=== PATIENT | male | born 1955 | race Caucasian/White ===

== ENCOUNTER 2021-12-04 18:50 | Emergency (ER) | payer BC ==
[~2021-12-04] VITALS: Ht 182 cm; Wt 90.2 kg
--- NOTE | 2021-12-04 18:56 | ED General ---
General Stated Complaint: HIGH BP History of Present Illness Date Seen by Provider: Dec 04, 2021 Time Seen by Provider: 18:56 Initial Comments 66-year-old male with PMH of DM2/ past hypertension but is now on Lisinopril only for diabetic kidney protection, is herre with c/o elevated blood pressure. Pt checked his BP at home today and it was 209/102. Pt called his PCP office and was advised to come to the ER. Pt stated he had a headache yesterday but has been fine today. Denies chest pain, palpitations, dizziness, nausea, vomiting, fever. Allergies and Home Medications Allergies Coded Allergies: No Known Drug Allergies (Unverified , 12/04/21) Patient Home Medication List Home Medication List Reviewed: Yes Review of Systems Review of Systems Constitutional: no symptoms reported EENTM: no symptoms reported Respiratory: no symptoms reported Cardiovascular: no symptoms reported Gastrointestinal: no symptoms reported Genitourinary: no symptoms reported Musculoskeletal: no symptoms reported Skin: no symptoms reported Psychiatric/Neurological: No Symptoms Reported Hematologic/Lymphatic: No Symptoms Reported Immunological/Allergic: no symptoms reported Physical Exam Vital Signs Vital Signs - First Documented 12/04/21 12/04/21 19:16 19:30 Temp 36.7 Pulse 90 Resp 20 B/P (MAP) 227/102 (143) Pulse Ox 97 O2 Delivery Room Air O2 Flow Rate 96.00 Capillary Refill : Height, Weight, BMI Height: '" Weight: lbs. oz. kg; BMI Method: General Appearance: No Apparent Distress, WD/WN HEENT: PERRL/EOMI Neck: Full Range of Motion, Normal Inspection, Non Tender, Supple Respiratory: Lungs Clear, Normal Breath Sounds Cardiovascular: Regular Rate, Rhythm, No Edema, No Murmur Gastrointestinal: Non Tender, Soft Extremity: Normal Range of Motion Neurologic/Psychiatric: Alert, Oriented x3, Normal Mood/Affect Skin: Normal Color Lymphatic: No Adenopathy Progress/Results/Core Measures Suspected Sepsis SIRS Temperature: Pulse: Respiratory Rate: Laboratory Tests 12/04/21 19:30: White Blood Count 7.7 Blood Pressure / Mean: Laboratory Tests 12/04/21 19:30: Creatinine 1.06, Platelet Count 241, Total Bilirubin 0.3 Results/Orders Lab Results Laboratory Tests Test 12/04/21 19:30 Range/Units White Blood Count 7.7 4.3-11.0 10^3/uL Red Blood Count 3.74 L 4.30-5.52 10^6/uL Hemoglobin 11.4 L 13.3-17.7 g/dL Hematocrit 33 L 40-54 % Mean Corpuscular Volume 88 80-99 fL Mean Corpuscular Hemoglobin 31 25-34 pg Mean Corpuscular Hemoglobin Concent 35 32-36 g/dL Red Cell Distribution Width 11.8 10.0-14.5 % Platelet Count 241 130-400 10^3/uL Mean Platelet Volume 11.4 9.0-12.2 fL Immature Granulocyte % (Auto) 0 % Neutrophils (%) (Auto) 58 42-75 % Lymphocytes (%) (Auto) 25 12-44 % Monocytes (%) (Auto) 10 0-12 % Eosinophils (%) (Auto) 5 0-10 % Basophils (%) (Auto) 1 0-10 % Neutrophils # (Auto) 4.5 1.8-7.8 10^3/uL Lymphocytes # (Auto) 1.9 1.0-4.0 10^3/uL Monocytes # (Auto) 0.8 0.0-1.0 10^3/uL Eosinophils # (Auto) 0.4 H 0.0-0.3 10^3/uL Basophils # (Auto) 0.1 0.0-0.1 10^3/uL Immature Granulocyte # (Auto) 0.0 0.0-0.1 10^3/uL Sodium Level 141 135-145 MMOL/L Potassium Level 3.4 L 3.6-5.0 MMOL/L Chloride Level 100 98-107 MMOL/L Carbon Dioxide Level 26 21-32 MMOL/L Anion Gap 15 H 5-14 MMOL/L Blood Urea Nitrogen 21 H 7-18 MG/DL Creatinine 1.06 0.60-1.30 MG/DL Estimat Glomerular Filtration Rate 77 BUN/Creatinine Ratio 20 Glucose Level 196 H 70-105 MG/DL Calcium Level 8.9 8.5-10.1 MG/DL Corrected Calcium 8.6 8.5-10.1 MG/DL Magnesium Level 1.5 L 1.6-2.4 MG/DL Total Bilirubin 0.3 0.1-1.0 MG/DL Aspartate Amino Transf (AST/SGOT) 15 5-34 U/L Alanine Aminotransferase (ALT/SGPT) 14 0-55 U/L Alkaline Phosphatase 52 40-136 U/L Troponin I < 0.30 <0.30 NG/ML Total Protein 6.9 6.4-8.2 GM/DL Albumin 4.4 3.2-4.5 GM/DL My Orders Orders - SAHIL MAANDA MD Ekg Tracing (12/04/21 19:55) Cbc With Automated Diff (12/04/21 19:55) Comprehensive Metabolic Panel (12/04/21 19:55) Magnesium (12/04/21 19:55) Troponin I Fs (12/04/21 19:55) Hydralazine Injection (Apresoline Inject (12/04/21 20:00) Potassium Chloride (Tablet) (K Dur Table (12/04/21 20:45) Magnesium 1 Gm/100 Ml Ivpb (Magnesium Solorzano (12/04/21 20:45) Labetalol Injection (Normodyne Injection (12/04/21 21:15) Medications Given in ED Current Medications Medications Dose Ordered Sig/Bennie Route Start Time Stop Time Status Last Admin Dose Admin Hydralazine HCl 10 mg ONCE ONCE IV 12/04/21 20:00 12/04/21 20:01 DC 12/04/21 20:13 10 MG Labetalol HCl 20 mg ONCE ONCE IV 12/04/21 21:15 12/04/21 21:16 DC 12/04/21 21:16 20 MG Magnesium Sulfate/ Dextrose 100 ml @ 100 mls/hr ONCE ONCE IV 12/04/21 20:45 12/04/21 21:44 DC 12/04/21 20:50 100 MLS/HR Potassium Chloride 40 meq ONCE ONCE PO 12/04/21 20:45 12/04/21 20:46 DC 12/04/21 20:52 40 MEQ Vital Signs/I&O 12/04/21 12/04/21 12/04/21 12/04/21 19:16 19:30 20:00 20:15 Temp 36.7 Pulse 90 87 83 85 Resp 20 20 20 20 B/P (MAP) 227/102 (143) 216/104 (141) 197/96 (129) 207/100 (135) Pulse Ox 97 96 96 96 O2 Delivery Room Air Room Air Room Air Room Air O2 Flow Rate 96.00 96.00 96.00 12/04/21 12/04/21 12/04/21 20:30 20:45 21:00 Pulse 87 80 84 Resp 20 20 20 B/P (MAP) 199/92 (127) 196/87 (123) 201/90 (127) Pulse Ox 97 97 97 O2 Delivery Room Air Room Air Room Air Capillary Refill : Progress Note : Progress Note 1. ASYMPTOMATIC UNCONTROLLED HYPERTENSION: - CBC: unremarkable - Troponin / EKG: non-ischemic - Hydralazine 10mg iv given ney, then later Labetalol 20mg iv. BP improved from 227 systoilc to 180 at time of discharge. Pt remained asymptomatic throughout - Advised to keep log of home BP measurements and follow up with PCP in one week -The patient was seen in the ED, and treated appropriately to presentation at a specific point in time. Patient is informed that there is a possibility that disease and illness can evolve and change in acuity rapidly or slowly after patient is discharged from the ER. Precautionary advice given to the patient for immediate return to ER if symptoms worsen or do not resolve, and to seek emergency care sooner rather than later. Pt also advised on the importance of PCP follow up and compliance with management and follow up plan with PCP and/or specialist, as this is part of the management plan. Pt verbally expressed understanding. 2. MILD ELECTROLYTE ABNORMALITIES: HYPOKALEMIA & HYPOMAGNESEMIA: - s. Mg is 1.5 - s. K is 3.4 - Repletion in ER with oral potassium 40mEq and iv magnesium sulfate 1gm iv STAT - Follow up with PCP for repeat labs in one week Departure Impression Primary Impression: Asymptomatic hypertensive urgency Additional Impressions: Hypomagnesemia Hypokalemia Disposition: 01 HOME, SELF-CARE Condition: Improved Departure-Patient Inst. Patient Instructions: High Blood Pressure (DC), DASH Diet, High Blood Pressure Emergencies, Heart Healthy Diet, Hypokalemia (DC), Low Magnesium Level Add. Discharge Instructions: - Advised to keep log of home BP measurements and follow up with PCP in one week - Follow up with PCP for repeat labs in one week SAHIL AMANDA MD Dec 04, 2021 18:56
[2021-12-04] MEDS ORDERED: hydrALAZINE (APESOLINE) 20 MG/ML VIAL IV ONE (20:00)
[2021-12-04 20:02] LABS: BASOPHILS # (AUTO) 0.1 10^3/uL (0.0-0.1); BASOPHILS % (AUTO) 1 % (0-10); EOSINOPHILS # (AUTO) 0.4 10^3/uL (0.0-0.3); EOSINOPHILS % (AUTO) 5 % (0-10); HEMATOCRIT 33 % (40-54); HEMOGLOBIN 11.4 g/dL (13.3-17.7); LYMPHOCYTES # (AUTO) 1.9 10^3/uL (1.0-4.0); LYMPHOCYTES % (AUTO) 25 % (12-44); MEAN CORPUSCULAR HEMOGLOBIN 31 pg (25-34); MEAN CORPUSCULAR HGB CONC 35 g/dL (32-36); MEAN CORPUSCULAR VOLUME 88 fL (80-99); MEAN PLATELET VOLUME 11.4 fL (9.0-12.2); MONOCYTES # (AUTO) 0.8 10^3/uL (0.0-1.0); MONOCYTES % (AUTO) 10 % (0-12); NEUTROPHILS # (AUTO) 4.5 10^3/uL (1.8-7.8); NEUTROPHILS % (AUTO) 58 % (42-75); PLATELET COUNT 241 10^3/uL (130-400); WHITE BLOOD COUNT 7.7 10^3/uL (4.3-11.0)
[2021-12-04 20:23] LABS: BUN/CREATININE RATIO 20; CARBON DIOXIDE 26 MMOL/L (21-32); CHLORIDE 100 MMOL/L (98-107); CREATININE SERUM 1.06 MG/DL (0.60-1.30); GFR ESTIMATED 77; POTASSIUM 3.4 MMOL/L (3.6-5.0); SODIUM 141 MMOL/L (135-145)
[2021-12-04 20:24] LABS: ALANINE AMINOTRANSFERASE 14 U/L (0-55); ALBUMIN 4.4 GM/DL (3.2-4.5); ALKALINE PHOSPHATASE 52 U/L (40-136); BILIRUBIN,TOTAL 0.3 MG/DL (0.1-1.0); CALCIUM 8.9 MG/DL (8.5-10.1); GLUCOSE 196 MG/DL (70-105); MAGNESIUM 1.5 MG/DL (1.6-2.4); TOTAL PROTEIN 6.9 GM/DL (6.4-8.2)
[2021-12-04] MEDS ORDERED: MAGNESIUM 1 GM/100 ML IVPB 100 ML IV ONE (20:45)
[2021-12-04] MEDS ORDERED: KCL 20 MEQ TAB (K-DUR) PO ONE (20:45)
[2021-12-04] MEDS ORDERED: LABETALOL HCL 20 MG/4 ML VIAL IV ONE (21:15)
[2021-12-04 22:35] VITALS: BP 182/81
== END 2021-12-04 22:35 | disposition home or self-care (01) ==
LOC: ER FS 18:52
DX: I16.0 Hypertensive urgency (principal); E83.42 Hypomagnesemia; E87.6 Hypokalemia; I10 Essential (primary) hypertension; Z28.310 Unvaccinated for COVID-19; Z79.899 Other long term (current) drug therapy
CPT/HCPCS: 36415; 80053; 83735; 84484; 85025; 93005; 96365; 96375